=== PATIENT | female | born 1990 | race Asian ===

== ENCOUNTER 2017-09-01 00:10 | Outpatient (CLI) | payer OTHER ==
[~2017-09-01] VITALS: Ht 165.1 cm; Wt 56.4 kg
[~2017-09-01 00:10] MED LIST: IBUP-1222 PO; OXYC-302 PO; PREN1TAB60 PO
[2017-09-01 00:17] VITALS: BP 116/68
[2017-09-01 01:21] LABS: MICROSCOPIC INDICATED
== END 2017-09-01 01:50 | disposition home or self-care (01) ==
LOC: LDOP 00:10
PROVIDERS: ATTEND Obstetrics & Gynecology Maternal & Fetal Medicine
DX: O62.9 Abnormality of forces of labor, unspecified (principal); Z3A.00 Weeks of gestation of pregnancy not specified
CPT/HCPCS: 59025; 81001; 87086; 99211; G0463

== ENCOUNTER 2018-07-30 16:36 | Emergency (ER) | payer OTHER ==
[~2018-07-30] VITALS: Ht 157.5 cm; Wt 52.7 kg
--- NOTE | 2018-07-30 17:12 | NUR ---
pt to ed for lower abd pain and lower back pain x 1 week. pt states currently on last day of zpack. pt is 19-20 weeks . connected to monitors. vss. lab at bedside to draw. awaiting us.
[2018-07-30 17:24] LABS: BASOPHILS # (AUTO) 0.05 x10^3/uL (0-0.1); BASOPHILS % (AUTO) 1 % (0-1); EOSINOPHILS % (AUTO) 1 % (1-7); LYMPHOCYTES # (AUTO) 1.25 x10^3/uL (1-3.4); LYMPHOCYTES % (AUTO) 18 % (22-44); MD NO; MEAN CORPUSCULAR HGB CONC 33.9 g/dL (32.4-35.8); MEAN CORPUSCULAR VOLUME 88.7 fL (80-100); MEAN PLATELET VOLUME 8.1 fL (7.4-10.4); MONOCYTES # (AUTO) 0.26 x10^3/uL (0.2-0.8); MONOCYTES % (AUTO) 4 % (2-9); NEUTROPHILS # (AUTO) 5.28 x10^3/uL (1.8-6.8); NEUTROPHILS % (AUTO) 76 % (42-75); PLATELET COUNT 254 x10^3/uL (130-400); RED BLOOD COUNT 4.45 x10^6/uL (3.82-5.3); RED CELL DISTRIBUTION WIDTH 13.6 % (9.6-15.2)
[2018-07-30 17:35] LABS: ALANINE AMINOTRANSFERASE 16 U/L (12-78); ALBUMIN 3.2 g/dL (3.4-5.0); ANION GAP 7 mmol/L (5-15); CALCIUM 8.3 mg/dL (8.5-10.1); CHLORIDE 112 mmol/L (98-107); CREATININE 0.55 mg/dL (0.55-1.02)
[2018-07-30 17:51] LABS: ALKALINE PHOSPHATASE 60 U/L (45-117); BILIRUBIN,TOTAL 0.4 mg/dL (0.2-1.0)
--- NOTE | 2018-07-30 18:04 | NUR ---
BREAK RN: ИРИНА STUBBS AT BEDSIDE TO ASSESS PT
[2018-07-30 18:05] LABS: MICROSCOPIC NOT IND
[2018-07-30 18:07] LABS: CULTURE INDICATED? NO
[2018-07-30 19:07] VITALS: BP 96/60
== END 2018-07-30 19:24 | disposition home or self-care (01) ==
LOC: ED 19:06
DX: O26.892 Other specified pregnancy related conditions, second trimester (principal); Z3A.19 19 weeks gestation of pregnancy; R10.31 Right lower quadrant pain; R10.32 Left lower quadrant pain; R10.33 Periumbilical pain
CPT/HCPCS: 36415; 76815; 80053; 81003; 84702; 85025; 99284

== ENCOUNTER 2018-12-06 23:06 | Outpatient (CLI) | payer OTHER ==
[~2018-12-06] VITALS: Ht 154.9 cm; Wt 57.3 kg
[2018-12-06 23:53] VITALS: BP 102/63
== END 2018-12-07 01:26 | disposition home or self-care (01) ==
LOC: LDOP 23:06
PROVIDERS: ATTEND Obstetrics & Gynecology Maternal & Fetal Medicine
DX: O26.893 Other specified pregnancy related conditions, third trimester (principal); R10.9 Unspecified abdominal pain; Z88.1 Allergy status to other antibiotic agents; Z3A.37 37 weeks gestation of pregnancy
CPT/HCPCS: 59025; 81001; 87086; 89060; 99211; G0463; Q0114